=== PATIENT | male | born 1960 | race Hispanic/Latino ===

== ENCOUNTER 2019-04-25 14:02 | Emergency (ER) | payer BC ==
[2019-04-25] MEDS ORDERED: LIDOCAINE 1% 20 ML MDV ONE (14:50)
--- NOTE | 2019-04-25 15:18 | ER ---
Nurse's Notes [facility] Name: Cuauhtemoc Cloud Age: 59 yrs Sex: Male : 1960 Arrival Date: 04/25/2019 Time: 14:05 Bed 24 Private MD: Mike Todd B Diagnosis: Cutaneous abscess of left lower limb Presentation: 04/25 14:13 Presenting complaint: Stung by unknown insect on left calf 6 days ago, reports hb worsening pain and redness over last few days. On Doxycycline Day 2. Transition of care: patient was not received from another setting of care. Onset of symptoms was April 19, 2019. Risk Assessment: Do you want to hurt yourself or someone else? Patient reports no desire to harm self or others. Care prior to arrival: None. 14:13 Method Of Arrival: Ambulatory hb 14:13 Acuity: NILA 4 hb 14:16 Initial Sepsis Screen: Does the patient meet any 2 criteria? No. Patient's initial hb sepsis screen is negative. Does the patient have a suspected source of infection? No. Patient's initial sepsis screen is negative. Triage Assessment: 14:50 Bite description: bite sustained to left leg by an unknown animal, animal information: mg2 vaccination(s) is unknown. General: Appears in no apparent distress. comfortable, Behavior is calm, cooperative. Historical: - Allergies: 14:16 No Known Allergies; hb - PMHx: 14:16 Hypertension; hb - Immunization history:: Adult Immunizations up to date. - Social history:: Smoking status: Patient/guardian denies using tobacco. - Ebola Screening: : No symptoms or risks identified at this time. Screenin:49 Abuse screen: Denies threats or abuse. Denies injuries from another. Nutritional mg2 screening: No deficits noted. Tuberculosis screening: No symptoms or risk factors identified. Fall Risk None identified. Assessment: 14:48 General: Appears in no apparent distress. comfortable, Behavior is calm, cooperative. mg2 Pain: Complains of pain in left leg Pain does not radiate. Pain currently is 5 out of 10 on a pain scale. Quality of pain is described as aching, Pain began gradually, 2-3 days ago. Neuro: Level of Consciousness is awake, alert, obeys commands, Oriented to person, place, time, situation. Cardiovascular: Capillary refill < 3 seconds Patient's skin is warm and dry. Respiratory: Airway is patent Respiratory effort is even, unlabored, Respiratory pattern is regular, symmetrical. GI: No signs and/or symptoms were reported involving the gastrointestinal system. : No signs and/or symptoms were reported regarding the genitourinary system. EENT: No signs and/or symptoms were reported regarding the EENT system. Derm: Skin abscess in the left leg Skin is pink, warm \T\ dry. normal, Abscess located on left leg. Musculoskeletal: Circulation, motion, and sensation intact. Capillary refill < 3 seconds. Vital Signs: 14:14 BP 155 / 85; Pulse 90; Resp 16; Temp 97.8; Pulse Ox 96% ; Weight 88 kg; Height 5 ft. 6 hb in. (167.64 cm); Pain 8/10; 15:26 BP 145 / 78; Pulse 88; Resp 18; Temp 98; Pulse Ox 100% on R/A; mg2 14:14 Body Mass Index 31.31 (88.00 kg, 167.64 cm) hb ED Course: 14:05 Patient arrived in ED. cl3 14:06 Mike Todd MD is Private Physician. cl3 14:14 Triage completed. hb 14:16 Arm band placed on. hb 14:21 Chandler Andrew PA is PHCP. jr8 14:21 Eyad Jimenez MD is Attending Physician. jr8 14:30 David Knapp, SANCHO is Primary Nurse. mg2 14:50 Patient did not have IV access during this emergency room visit. mg2 14:51 Patient has correct armband on for positive identification. mg2 15:18 Mike Todd MD is Referral Physician. jr8 15:25 Assist provider with I \T\ D: of an abscess on left leg Set up I\T\D tray. Performed by mg 2 Chandler HYDE Wound packed. iodoform gauze, Dressing with 4X4s, Patient tolerated well. Administered Medications: 15:07 Drug: Lidocaine (1 %) 1 vials {Note: applied by the provider to the wound.} Volume: 20 mg2 ml; Route: Infiltration; 15:25 Follow up: Response: No adverse reaction mg2 Outcome: 15:18 Discharge ordered by . jr8 15:26 Discharged to home ambulatory. mg2 15:26 Condition: stable 15:26 Discharge instructions given to patient, Instructed on discharge instructions, follow up and referral plans. medication usage, wound care, Demonstrated understanding of instructions, follow-up care, medications, wound care, Prescriptions given X 1. 15:26 Patient left the ED. mg2 Signatures: Chandler Andrew PA PA jr8 Dania Weiner RN RN hb David Knapp RN RN mg2 [place] cl3 Corrections: (The following items were deleted from the chart) 14:16 14:13 Presenting complaint: Stung by unknown insect on left calf 6 days ago, reports hb worsening pain and redness over last few days hb
--- NOTE | 2019-04-25 15:19 | EDPHYS ---
Physician Documentation [facility] Name: Cuauhtemoc Cloud Age: 59 yrs Sex: Male : 1960 Arrival Date: 04/25/2019 Time: 14:05 Bed 24 Private MD: Mike Todd B ED Physician Eyad Jimenez HPI: 04/25 14:43 This 59 yrs old Male presents to ER via Ambulatory with complaints of Insect jr8 Bite. 14:43 the patient presents with a swollen area of the left leg. Description: The affected jr8 area is moderate sized, draining, erythematous, swollen, warm. Onset: The symptoms/episode began/occurred gradually, 3 day(s) ago. Possible cause(s): unknown. Associated signs and symptoms: The patient has no apparent associated signs or symptoms. Modifying factors: the symptoms are alleviated by nothing, the symptoms are aggravated by walking, pressure, squeezing the lesion and expressing the contents, touching. Severity of symptoms: At their worst the symptoms were moderate, in the emergency department the symptoms are unchanged. The patient has not experienced similar symptoms in the past. The patient has not recently seen a physician. Historical: - Allergies: 14:16 No Known Allergies; hb - PMHx: 14:16 Hypertension; hb - Immunization history:: Adult Immunizations up to date. - Social history:: Smoking status: Patient/guardian denies using tobacco. - Ebola Screening: : No symptoms or risks identified at this time. ROS: 14:43 Eyes: Negative for injury, pain, redness, and discharge, ENT: Negative for injury, jr8 pain, and discharge, Neck: Negative for injury, pain, and swelling, Cardiovascular: Negative for chest pain, palpitations, and edema, Respiratory: Negative for shortness of breath, cough, wheezing, and pleuritic chest pain, Abdomen/GI: Negative for abdominal pain, nausea, vomiting, diarrhea, and constipation, Back: Negative for injury and pain, MS/Extremity: Negative for injury and deformity, Neuro: Negative for headache, weakness, numbness, tingling, and seizure. 14:43 Skin: Positive for abscess, cellulitis, of the left leg. Exam: 14:43 Eyes: Pupils equal round and reactive to light, extra-ocular motions intact. Lids and jr8 lashes normal. Conjunctiva and sclera are non-icteric and not injected. Cornea within normal limits. Periorbital areas with no swelling, redness, or edema. ENT: Nares patent. No nasal discharge, no septal abnormalities noted. Tympanic membranes are normal and external auditory canals are clear. Oropharynx with no redness, swelling, or masses, exudates, or evidence of obstruction, uvula midline. Mucous membranes moist. Neck: Trachea midline, no thyromegaly or masses palpated, and no cervical lymphadenopathy. Supple, full range of motion without nuchal rigidity, or vertebral point tenderness. No Meningismus. Cardiovascular: Regular rate and rhythm with a normal S1 and S2. No gallops, murmurs, or rubs. Normal PMI, no JVD. No pulse deficits. Respiratory: Lungs have equal breath sounds bilaterally, clear to auscultation and percussion. No rales, rhonchi or wheezes noted. No increased work of breathing, no retractions or nasal flaring. Abdomen/GI: Soft, non-tender, with normal bowel sounds. No distension or tympany. No guarding or rebound. No evidence of tenderness throughout. Back: No spinal tenderness. No costovertebral tenderness. Full range of motion. MS/ Extremity: Pulses equal, no cyanosis. Neurovascular intact. Full, normal range of motion. Neuro: Awake and alert, GCS 15, oriented to person, place, time, and situation. Cranial nerves II-XII grossly intact. Motor strength 5/5 in all extremities. Sensory grossly intact. Cerebellar exam normal. Normal gait. 14:43 Skin: Patient has 2.5 cm area of fluctuance with active draining of purulent material. Patient has surrounding cellulitis present covering large portion of lateral and posterior calf. Vital Signs: 14:14 BP 155 / 85; Pulse 90; Resp 16; Temp 97.8; Pulse Ox 96% ; Weight 88 kg; Height 5 ft. 6 hb in. (167.64 cm); Pain 8/10; 15:26 BP 145 / 78; Pulse 88; Resp 18; Temp 98; Pulse Ox 100% on R/A; mg2 14:14 Body Mass Index 31.31 (88.00 kg, 167.64 cm) hb Procedures: 15:16 I \T\ D: Incision and drainage was performed for an abscess of the left lateral lower jr8 calf Prepped with Betadine, Anesthetized with 10 ml's 1% Lidocaine. Incised with #11 blade. Drained small amount purulent fluid. serosanguinous fluid. bloody fluid. Loculations removed. Abscess cavity explored. Packed with iodoform gauze, Dressing: sterile 4x4 gauze, the patient tolerated the procedure well. MDM: 14:24 Patient medically screened. jr8 15:16 Data reviewed: vital signs, nurses notes, and as a result, I will discharge patient. jr8 Data interpreted: Pulse oximetry: on room air is 96 %. Interpretation: normal. Counseling: I had a detailed discussion with the patient and/or guardian regarding: the historical points, exam findings, and any diagnostic results supporting the discharge/admit diagnosis, lab results, the need for outpatient follow up, a family practitioner, to return to the emergency department if symptoms worsen or persist or if there are any questions or concerns that arise at home. 04/25 14:28 Order name: I\T\D Setup; Complete Time: 14:40 jr8 Administered Medications: 15:07 Drug: Lidocaine (1 %) 1 vials {Note: applied by the provider to the wound.} Volume: 20 mg2 ml; Route: Infiltration; 15:25 Follow up: Response: No adverse reaction mg2 Disposition: 16:20 Co-signature as Attending Physician, Eyad Jimenez MD. rn Disposition: 04/25/19 15:18 Discharged to Home. Impression: Cutaneous abscess of left lower limb. - Condition is Stable. - Discharge Instructions: Skin Abscess, Incision and Drainage. - Prescriptions for Bactrim DS 800- 160 mg Oral Tablet - take 1 tablet by ORAL route every 12 hours for 10 days; 20 tablet. - Medication Reconciliation Form, Thank You Letter, Antibiotic Education, Prescription Opioid Use, Work release form form. - Follow up: Mike Todd MD; When: 48 Hours; Reason: Wound Recheck, Recheck today's complaints, Continuance of care, Re-evaluation by your physician. - Problem is new. - Symptoms have improved. Signatures: Eyad Jimenez MD MD rn Roszak, Josh, PA PA jr8 Dania Weiner RN RN David Knapp RN RN mg2 Corrections: (The following items were deleted from the chart) 15:26 15:18 04/25/2019 15:18 Discharged to Home. Impression: Cutaneous abscess of left lower mg2 limb. Condition is Stable. Forms are Medication Reconciliation Form, Thank You Letter, Antibiotic Education, Prescription Opioid Use. Follow up: Mike Todd; When: 48 Hours; Reason: Wound Recheck, Recheck today's complaints, Continuance of care, Re-evaluation by your physician. Problem is new. Symptoms have improved. jr8
== END 2019-04-25 15:26 | disposition home or self-care (01) ==
LOC: ER 14:02
PROC: 0J9P0ZZ Drainage of Left Lower Leg Subcutaneous Tissue and Fascia, Open Approach (ICD-10-PCS; principal; 2019-04-25)
DX: L02.416 Cutaneous abscess of left lower limb (principal)

== ENCOUNTER 2020-12-17 05:28 | Inpatient (IN) | payer BC ==
--- OUTSIDE RECORDS SUMMARY | 2020-12-17 05:32 | XMS REPORT | Continuity of Care Document ---
:1960 Author Organization [facility] t Address [address] [place] [address] Care Team Providers Name Role Phone Therapy, Joe Infusion Attending Clinician Unavailable Lab, Fam Pob I Attending Clinician Unavailable Problems This patient has no known problems. Allergies, Adverse Reactions, Alerts This patient has no known allergies or adverse reactions. Medications This patient has no known medications. Procedures This patient has no known procedures. Encounters Start End Encounter Admission Attending Care Care Encounter Source Date/Time Date/Time Type Type Clinicians Facility Department ID 2020-12-16 2020-12-16 Nurse Therapy, [facility] [id number] 16:02:44 16:32:[address] [facility] Joe Marrufo [id number] Infusion [place] [id number] Surgical [id number] [place] 053 2020-12-13 2020-12-13 Laboratory Lab, [facility] [id number] 11:44:00 12:04:00 Only Fam Pob I Health [id number] [place] [id number] Professio [phone] nal 044 [address] One Results This patient has no known results.
[2020-12-17 06:25] LABS: Absolute Lymphocytes (CBC) 0.9 K/uL (0.7-4.9); Basophils % 0.1 % (0-1.3); Hematocrit 43.1 % (39.6-49.0); Lymphocytes % 4.7 % (15.3-44.8); RBC Red Blood Cell Count 4.77 M/uL (4.33-5.43)
[2020-12-17] MEDS ORDERED: NA CHLORIDE 0.9% 250 ML ONE (06:33)
[2020-12-17] MEDS ORDERED: dexAMETHasone 10 MG/ML VIAL ONE (06:33)
[2020-12-17] MEDS ORDERED: CEFTRIAXONE/SWI 1gm 1 GM/10 ML SYR ONE (06:33)
[2020-12-17] MEDS ORDERED: FAMOTIDINE 20 MG/2 ML VIAL IV ONE (06:33)
[2020-12-17] MEDS ORDERED: AZITHROMYCIN 500 MG INJ IVPB ONE (06:33)
[2020-12-17] MEDS ORDERED: ALBUTEROL INHALER 60 PUFF/8 GM IH ONE (06:34)
--- NOTE | 2020-12-17 06:42 | ER ---
Nurse's Notes [facility] Name: Cuauhtemoc Cloud Age: 60 yrs Sex: Male : 1960 Arrival Date: 12/17/2020 Time: 05:32 Bed 2 Private MD: Diagnosis: Fever, unspecified;Other viral pneumonia-covid 19;Hypoxemia Presentation: 12/17 05:51 Chief complaint: Patient states: i have covid symptoms for the last 9 days like fever mg2 and shortness of breath, i tested covid positive last 12/13/20 \T\ [facility] and I received Antibody infusion yesterday \T\ [place]. 3 hours ago, radha been having fever 101 F and difficulty breathing. I took tylenol 3 hours [employer]ACHINE [employer]. Coronavirus screen: Client denies travel out of the [place] in the last 14 days. Client presents with at least one sign or symptom that may indicate coronavirus-19. Standard/surgical mask placed on the client. Provider contacted for isolation considerations. Client reports previous positive COVID test result. Date of collection: December 13, 2020 results are being brought by a family member or friend. [facility]. Ebola Screen: No symptoms or risks identified at this time. Initial Sepsis Screen: Does the patient meet any 2 criteria? No. Patient's initial sepsis screen is negative. Does the patient have a suspected source of infection? No. Patient's initial sepsis screen is negative. Risk Assessment: Do you want to hurt yourself or someone else? Patient reports no desire to harm self or others. Onset of symptoms was November 2020. 05:51 Method Of Arrival: Ambulatory mg2 05:51 Acuity: NILA 3 mg2 Triage Assessment: 05:59 General: Appears in no apparent distress. comfortable, Behavior is calm, cooperative. mg2 Pain: Denies pain. EENT: No signs and/or symptoms were reported regarding the EENT system. Neuro: Level of Consciousness is awake, alert, obeys commands, Oriented to person, place, time, situation. Cardiovascular: Capillary refill < 3 seconds Patient's skin is warm and dry. Respiratory: Reports shortness of breath at rest Onset: The symptoms/episode began/occurred gradually, the patient has mild shortness of breath. GI: No signs and/or symptoms were reported involving the gastrointestinal system. : No signs and/or symptoms were reported regarding the genitourinary system. Derm: Skin is intact, is healthy with good turgor, Skin is pink, warm \T\ dry. normal. Musculoskeletal: Circulation, motion, and sensation intact. Capillary refill < 3 seconds. Historical: - Allergies: 05:59 No Known Allergies; mg2 - Home Meds: 05:59 cholesterol and bp pills [Active]; mg2 - PMHx: 05:59 Hypertension; Hyperlipidemia; mg2 - Immunization history:: Flu vaccine status is unknown. - Social history:: Smoking status: Patient denies any tobacco usage or history of. Patient/guardian denies using alcohol, street drugs, IV drugs. - Family history:: not pertinent. Screenin:00 Abuse screen: Denies threats or abuse. Denies injuries from another. Nutritional mg2 screening: No deficits noted. Tuberculosis screening: No symptoms or risk factors identified. Fall Risk None identified. Assessment: 06:00 General: see triage note. mg2 06:21 Cardiovascular: Rhythm is regular. Respiratory: Airway is patent Respiratory effort is mg2 even, unlabored, 07:00 Reassessment: Patient appears in no apparent distress at this time. Patient and/or tw2 family updated on plan of care and expected duration. Pain level reassessed. Patient is alert, oriented x 3, equal unlabored respirations, skin warm/dry/pink. Patient states feeling better. Patient states symptoms have improved. Vital Signs: 05:51 BP 140 / 78; Pulse 88; Resp 20; Temp 99.2; Pulse Ox 92% on R/A; mg2 07:41 BP 147 / 67; Pulse 84; Resp 17; Pulse Ox 95% on R/A; tw2 09:00 BP 112 / 73; Pulse 75; Resp 15; Pulse Ox 94% ; jl7 ED Course: 05:32 Patient arrived in ED. am4 05:51 David Knapp, SANCHO is Primary Nurse. mg2 05:57 Triage completed. mg2 05:58 Zack Clay MD is Attending Physician. [place] 05:59 Arm band placed on. mg2 06:00 Patient has correct armband on for positive identification. mg2 06:00 No provider procedures requiring assistance completed. mg2 06:00 Inserted saline lock: 20 gauge in left antecubital area, using aseptic technique. Blood mg2 collected. 06:07 EKG done, by ED staff, reviewed by Zack Clay MD. em 06:26 XRAY Chest (1 view) In Process Unspecified. EDMS 06:38 Farheen Lara MD is Hospitalizing Provider. [place] 07:00 Pulse ox on. NIBP on. jl7 07:02 CT Chest For PE Angio In Process Unspecified. EDMS 07:08 Primary Nurse role handed off by David Knapp, SANCHO bd 07:14 Lala Dubose, SANCHO is Primary Nurse. tw2 07:40 Awaiting: hospital orders, hospitalist consult, and update as to POC. tw2 10:37 Patient admitted, IV remains in place. intact, No redness/swelling at site. jl7 Administered Medications: 06:20 Drug: Rocephin - (cefTRIAXone) 1 grams Route: IVPB; Infused Over: 30 mins; Site: left mg2 antecubital; 07:00 Follow up: Response: No adverse reaction; IV Status: Completed infusion jl7 06:20 Drug: Zithromax (azithromycin) 500 mg Route: IVPB; Infused Over: 1 hrs; Site: left mg2 antecubital; 07:20 Follow up: Response: No adverse reaction; IV Status: Completed infusion jl7 06:20 Drug: Pepcid 20 mg Route: IVP; Site: left antecubital; mg2 07:00 Follow up: Response: No adverse reaction jl7 06:20 Drug: Decadron - Dexamethasone 10 mg Route: IVP; Site: left antecubital; mg2 07:00 Follow up: Response: No adverse reaction jl7 06:20 Drug: Albuterol HFA Inhaler 4 puffs Route: Inhalation; mg2 07:00 Follow up: Response: No adverse reaction jl7 06:24 Not Given (patient took tylenol 3 hours ago): Tylenol 1000 mg PO once mg2 06:31 Drug: Zofran (Ondansetron) 4 mg Route: IVP; Site: left antecubital; mg2 07:41 Follow up: Response: No adverse reaction; Nausea is decreased tw2 08:00 Drug: Lovenox 40 mg Route: Sub-Q; Site: right lower abdomen; tw2 10:38 Follow up: Response: No adverse reaction jl7 Outcome: 06:41 Decision to Hospitalize by Provider. [place] 10:36 Admitted to ER Hold. Please see [facility] for further documentation. jl7 10:36 Condition: stable 10:36 Discharge instructions given to patient, Instructed on the need for admit, Demonstrated understanding of instructions. 15:45 Patient left the ED. aa5 Signatures: Dispatcher [employer] Miesha Sesay Corey, MD MD cha Munoz, Edgar, RN RN Josee Gonzalez, RN RN aa5 Lala Dubose RN RN tw2 Rom King RN RN jl7 David Knapp RN SANCHO [facility] Bhavya Gurrola am
--- NOTE | 2020-12-17 06:42 | EDPHYS ---
Physician Documentation [facility] Name: Cuauhtemoc Cloud Age: 60 yrs Sex: Male : 1960 Arrival Date: 12/17/2020 Time: 05:32 Bed 2 Private MD: ED Physician Zack Clay HPI: 12/17 06:08 This 60 yrs old Male presents to ER via Ambulatory with complaints of delano Shortness Of Breath, COVID +. 06:08 The patient has shortness of breath at rest, with light activity. Onset: The delano symptoms/episode began/occurred just prior to arrival, this morning. Duration: The symptoms are continuous, and are steadily getting worse. The patient's shortness of breath is aggravated by coughing, light activity, supine position. Associated signs and symptoms: Pertinent positives: non-productive cough, fever. Severity of symptoms: At their worst the symptoms were mild moderate in the emergency department the symptoms have improved mildly. The patient has experienced similar episodes in the past, a few times. Historical: - Allergies: 05:59 No Known Allergies; mg2 - Home Meds: 05:59 cholesterol and bp pills [Active]; mg2 - PMHx: 05:59 Hypertension; Hyperlipidemia; mg2 - Immunization history:: Flu vaccine status is unknown. - Social history:: Smoking status: Patient denies any tobacco usage or history of. Patient/guardian denies using alcohol, street drugs, IV drugs. - Family history:: not pertinent. ROS: 06:08 Constitutional: Negative for fever, chills, and weight loss, Eyes: Negative for injury, delano pain, redness, and discharge, ENT: Negative for injury, pain, and discharge, Neck: Negative for injury, pain, and swelling, Cardiovascular: Negative for chest pain, palpitations, and edema, Abdomen/GI: Negative for abdominal pain, nausea, vomiting, diarrhea, and constipation, Back: Negative for injury and pain, : Negative for injury, bleeding, discharge, and swelling, MS/Extremity: Negative for injury and deformity, Skin: Negative for injury, rash, and discoloration, Neuro: Negative for headache, weakness, numbness, tingling, and seizure, Psych: Negative for depression, anxiety, suicide ideation, homicidal ideation, and hallucinations, Allergy/Immunology: Negative for hives, rash, and allergies, Endocrine: Negative for neck swelling, polydipsia, polyuria, polyphagia, and marked weight changes, Hematologic/Lymphatic: Negative for swollen nodes, abnormal bleeding, and unusual bruising. 06:08 Respiratory: Positive for cough, shortness of breath, at rest. Exam: 06:08 Constitutional: This is a well developed, well nourished patient who is awake, alert, delano and in no acute distress. Head/Face: Normocephalic, atraumatic. Eyes: Pupils equal round and reactive to light, extra-ocular motions intact. Lids and lashes normal. Conjunctiva and sclera are non-icteric and not injected. Cornea within normal limits. Periorbital areas with no swelling, redness, or edema. ENT: Nares patent. No nasal discharge, no septal abnormalities noted. Tympanic membranes are normal and external auditory canals are clear. Oropharynx with no redness, swelling, or masses, exudates, or evidence of obstruction, uvula midline. Mucous membranes moist. Neck: Trachea midline, no thyromegaly or masses palpated, and no cervical lymphadenopathy. Supple, full range of motion without nuchal rigidity, or vertebral point tenderness. No Meningismus. Chest/axilla: Normal chest wall appearance and motion. Nontender with no deformity. No lesions are appreciated. Cardiovascular: Regular rate and rhythm with a normal S1 and S2. No gallops, murmurs, or rubs. Normal PMI, no JVD. No pulse deficits. Abdomen/GI: Soft, non-tender, with normal bowel sounds. No distension or tympany. No guarding or rebound. No evidence of tenderness throughout. Back: No spinal tenderness. No costovertebral tenderness. Full range of motion. Male : Normal genitalia with no discharge or lesions. Skin: Warm, dry with normal turgor. Normal color with no rashes, no lesions, and no evidence of cellulitis. MS/ Extremity: Pulses equal, no cyanosis. Neurovascular intact. Full, normal range of motion. Neuro: Awake and alert, GCS 15, oriented to person, place, time, and situation. Cranial nerves II-XII grossly intact. Motor strength 5/5 in all extremities. Sensory grossly intact. Cerebellar exam normal. Normal gait. Psych: Awake, alert, with orientation to person, place and time. Behavior, mood, and affect are within normal limits. 06:08 Respiratory: the patient does not display signs of respiratory distress, Respirations: labored breathing, that is mild, Breath sounds: decreased breath sounds, rhonchi, that are mild, Respiratory rate: 20 06:14 ECG was reviewed by the Attending Physician. [facility] Vital Signs: 05:51 BP 140 / 78; Pulse 88; Resp 20; Temp 99.2; Pulse Ox 92% on R/A; mg2 07:41 BP 147 / 67; Pulse 84; Resp 17; Pulse Ox 95% on R/A; tw2 09:00 BP 112 / 73; Pulse 75; Resp 15; Pulse Ox 94% ; jl7 MDM: 05:58 Patient medically screened. [facility] 06:11 Differential diagnosis: asthma, Bronchitis CHF exacerbation, Chronic Obstructive delano Pulmonary Disease pneumonia, pulmonary edema, Pulmonary Embolism reactive airway disease, Sepsis. Antibiotic administration: Rocephin and Zithromax given. The patient's Wells Deep Vein Thrombosis Score was calculated as follows: Total Score: 0-2 Pts- Low Risk. The patient's pulmonary embolism risk score was calculated as follows: Total Score: 3-6 points. This patient was found to be at moderate risk for a pulmonary embolism by using the Well's assessment criteria. Immunization status: Influenza vaccine: Data reviewed: vital signs, nurses notes, lab test result(s), EKG, radiologic studies, plain films. Data interpreted: monitoring and evaluation advisor: rate is 88 beats/min, rhythm is regular. Test interpretation: by ED physician or midlevel provider: ECG, plain radiologic studies. Counseling: I had a detailed discussion with the patient and/or guardian regarding: the historical points, exam findings, and any diagnostic results supporting the discharge/admit diagnosis, lab results, radiology results. 12/17 05:58 Order name: Basic Metabolic Panel; Complete Time: 07:23 em 12/17 05:58 Order name: CBC with Diff em 12/17 05:58 Order name: LFT's; Complete Time: 07:23 em 12/17 05:58 Order name: Magnesium; Complete Time: 07:23 em 12/17 05:58 Order name: NT PRO-BNP; Complete Time: 07:23 em 12/17 05:58 Order name: PT-INR; Complete Time: 07:23 em 12/17 05:58 Order name: Troponin (emerg Dept Use Only); Complete Time: 07:23 em 12/17 05:59 Order name: Lactate; Complete Time: 07:23 em 12/17 05:59 Order name: Blood Culture Adult (2) em 12/17 05:59 Order name: Urine Culture em 12/17 06:42 Order name: CREATININE WHOLE BLOOD; Complete Time: 07:23 EDMS 12/17 08:16 Order name: Urine Dipstick--Ancillary (enter results) bd 12/17 08:37 Order name: Manual Differential EDMS 12/17 08:50 Order name: C-Reactive Protein EDMS 12/17 05:58 Order name: XRAY Chest (1 view) em 12/17 06:13 Order name: CT Chest For PE Angio delano 12/17 08:50 Order name: C-Reactive Protein EDMS 12/17 08:50 Order name: Comprehensive Metabolic Panel EDMS 12/17 08:50 Order name: Comprehensive Metabolic Panel EDMS 12/17 08:50 Order name: Ferritin EDMS 12/17 08:51 Order name: Ferritin EDMS 12/17 08:51 Order name: CBC with Automated Diff EDMS 12/17 08:51 Order name: CBC with Automated Diff EDMS 12/17 08:51 Order name: Lipid Profile EDMS 12/17 08:51 Order name: Lipid Profile EDMS 12/17 08:51 Order name: Magnesium EDMS 12/17 08:51 Order name: Magnesium EDMS 12/17 08:51 Order name: Phosphorus EDMS 12/17 08:51 Order name: Phosphorus EDMS 12/17 05:58 Order name: EKG; Complete Time: 05:59 em 12/17 05:58 Order name: Cardiac monitoring; Complete Time: 06:00 em 12/17 05:58 Order name: EKG - Nurse/Tech; Complete Time: 06:12 em 12/17 05:58 Order name: IV Saline Lock; Complete Time: 06:21 em 12/17 05:58 Order name: Labs collected and sent; Complete Time: 06:21 em 12/17 05:58 Order name: O2 Per Protocol; Complete Time: 06:21 em 12/17 05:58 Order name: O2 Sat Monitoring; Complete Time: 06:21 em 12/17 08:50 Order name: Regular EDMS EC:14 Rate is 94 beats/min. Rhythm is regular. QRS [place] is Normal. MD interval is normal. QRS delano interval is normal. QT interval is normal. No Q waves. T waves are Normal. No ST changes noted. Clinical impression: NSR w/ Non-specific ST/T Changes and No evidence of ischemia. Interpreted by me. Reviewed by me. Administered Medications: 06:20 Drug: Rocephin - (cefTRIAXone) 1 grams Route: IVPB; Infused Over: 30 mins; Site: left mg2 antecubital; 07:00 Follow up: Response: No adverse reaction; IV Status: Completed infusion jl7 06:20 Drug: Zithromax (azithromycin) 500 mg Route: IVPB; Infused Over: 1 hrs; Site: left mg2 antecubital; 07:20 Follow up: Response: No adverse reaction; IV Status: Completed infusion jl7 06:20 Drug: Pepcid 20 mg Route: IVP; Site: left antecubital; mg2 07:00 Follow up: Response: No adverse reaction jl7 06:20 Drug: Decadron - Dexamethasone 10 mg Route: IVP; Site: left antecubital; mg2 07:00 Follow up: Response: No adverse reaction jl7 06:20 Drug: Albuterol HFA Inhaler 4 puffs Route: Inhalation; mg2 07:00 Follow up: Response: No adverse reaction jl7 06:24 Not Given (patient took tylenol 3 hours ago): Tylenol 1000 mg PO once mg2 06:31 Drug: Zofran (Ondansetron) 4 mg Route: IVP; Site: left antecubital; mg2 07:41 Follow up: Response: No adverse reaction; Nausea is decreased tw2 08:00 Drug: Lovenox 40 mg Route: Sub-Q; Site: right lower abdomen; tw2 10:38 Follow up: Response: No adverse reaction jl7 Disposition: 12/17/20 06:41 Hospitalization ordered by Farheen Lara for Inpatient Admission. Preliminary diagnosis are Fever, unspecified, Other viral pneumonia - covid 19, Hypoxemia. - Bed requested for Telemetry/MedSurg (Inpatient). - Status is Inpatient Admission. aa5 - Condition is Fair. - Problem is new. - Symptoms have improved. Signatures: Dispatcher [employer] EDMiesha Aranda Corey, MD MD cha Munoz, Edgar RN RN Josee Gonzalez RN RN aa5 Cristin Rojas RN RN ss Lala Dubose RN RN tw2 David Knapp, RN RN [facility] Rom King RN jl7 Corrections: (The following items were deleted from the chart) 08:20 06:41 Hospitalization Ordered by Farheen Lara MD for Inpatient Admission. Preliminary ss diagnosis is Fever, unspecified; Other viral pneumonia - covid 19; Hypoxemia. Bed requested for Telemetry/MedSurg (Inpatient). Status is Inpatient Admission. Condition is Fair. Problem is new. Symptoms have improved. delano 15:23 08:20 12/17/2020 06:41 Hospitalization Ordered by Farheen Lara MD for Inpatient bd Admission. Preliminary diagnosis is Fever, unspecified; Other viral pneumonia - covid 19; Hypoxemia. Bed requested for [facility] ER HOLD. Status is Inpatient Admission. Condition is Fair. Problem is new. Symptoms have improved. ss 15:45 15:23 12/17/2020 06:41 Hospitalization Ordered by Farheen Lara MD for Inpatient aa5 Admission. Preliminary diagnosis is Fever, unspecified; Other viral pneumonia - covid 19; Hypoxemia. Bed requested for Telemetry/MedSurg (Inpatient). Status is Inpatient Admission. Condition is Fair. Problem is new. Symptoms have improved. bd
[2020-12-17 06:44] LABS: Protime INR 1.26
[2020-12-17 06:47] LABS: ALT/SGPT 201 U/L (12-78); AST/SGOT 251 U/L (15-37); Albumin 2.8 g/dL (3.4-5.0); Alkaline Phosphatase 110 U/L (45-117); BUN Blood Urea Nitrogen 21 mg/dL (7-18); Bicarbonate 22 mmol/L (21-32); Bilirubin Direct 0.4 mg/dL (0-0.2); Bilirubin Total 0.9 mg/dL (0.2-1.0); Glucose Level 116 mg/dL (74-106); Magnesium 1.9 mg/dL (1.8-2.4); NT PRO-BNP 197 pg/mL (<125); Potassium 3.6 mmol/L (3.5-5.1); Protein, Total 6.9 g/dL (6.4-8.2); Sodium Level 139 mmol/L (136-145); Troponin (Emerg Dept Use Only) < 0.02 ng/mL (0.0-0.045)
[2020-12-17] MEDS ORDERED: ONDANSETRON 4 MG/2 ML VIAL ONE (06:47)
--- NOTE | 2020-12-17 07:42 | RAD REPORT ---
EXAM DESCRIPTION: Penny Single View12/17/2020 6:25 am CLINICAL HISTORY: Shortness of breath COMPARISON: none FINDINGS: Mild to moderate bilateral patchy lung opacities. The heart is normal size IMPRESSION: Mild to moderate bilateral patchy lung opacities may indicate pneumonia
--- NOTE | 2020-12-17 07:43 | RAD REPORT ---
EXAM DESCRIPTION: CT - Chest For Pe Angio - 12/17/2020 7:02 am CLINICAL HISTORY: Shortness of breath COMPARISON: None. TECHNIQUE: Dynamically enhanced axial 3 mm thick images of the chest were obtained during administra tion of <100> mL Isovue 370 IV contrast. Coronal and oblique reconstruction images were generated and reviewed. Exam utilizes a protocol for optimal evaluation of pulmonary arterial tree. Maximum intensity projections 3D imaging was utilized All CT scans are performed using dose optimization technique as appropriate and may include automated exposure control or mA/KV adjustment according to patient size. FINDINGS: A pulmonary embolus is not seen. A thoracic aortic aneurysm is not noted. A pleural effusion is not seen. A pericardial effusion is not seen. Mild to moderate bilateral ground-glass opacities IMPRESSION: Negative for a pulmonary embolism. Mild to moderate bilateral ground-glass opacities may indicate covid pneumonia
[2020-12-17] MEDS ORDERED: ENOXAPARIN 40 MG/0.4 ML SQ ONE (07:53)
[2020-12-17 08:37] LABS: Blood Morphology Comment NOT SEEN (NOT SEEN); Platelet Estimate ADEQ
[2020-12-17 08:40] LABS: Urine Blood NEGATIVE (NEG); Urine Glucose NEGATIVE (NEG); Urine Protein 2+ (NEG); Urine Specific Gravity 1.015 (1.005-1.030)
[2020-12-17] MEDS ORDERED: ALBUTEROL 2.5 MG/3 ML NEB SOL NEB PRN ×2 (08:48→14:00)
[2020-12-17] MEDS ORDERED: ACETAMINOPHEN 500 MG TAB PO PRN (08:48)
[2020-12-17] MEDS ORDERED: IPRATROPIUM BROM 0.5MG/2.5ML NEB PRN (08:48)
[2020-12-17] MEDS ORDERED: ONDANSETRON 4 MG/2 ML VIAL IV PRN (08:48)
[2020-12-17] MEDS ORDERED: CEFTRIAXONE 1 GM/NS 50 ML 1 GM/50 ML BAG IV SCH (09:00)
[2020-12-17] MEDS ORDERED: APIXABAN 2.5 MG TABLET PO SCH (09:00)
[2020-12-17] MEDS ORDERED: METHYLPREDNISOLONE 40 MG INJ ONE (10:27)
[2020-12-17] MEDS ORDERED: APIXABAN 5 MG TABLET ONE (10:27)
[2020-12-17] MEDS: APIXABAN 5 MG TABLET PO SCH ×2 (10:30→20:31)
[2020-12-17] MEDS: METHYLPREDNISOLONE 125 MG INJ IV SCH ×2 (10:30→20:31)
[2020-12-17 13:17] VITALS: BMI 31.9
[2020-12-17] MEDS ORDERED: INFLUENZA VACCINE (for 3y+) 0.5 ML DOSE IMVAC ONE (14:00)
[2020-12-17] MEDS: CEFTRIAXONE/SWI 1gm 1 GM/10 ML SYR IV SCH (20:31)
[2020-12-18 04:19] LABS: Absolute Lymphocytes (CBC) 0.9 K/uL (0.7-4.9); Basophils % 0.1 % (0-1.3); Lymphocytes % 6.9 % (15.3-44.8); MPV 9.4 fL (7.6-11.3); RBC Red Blood Cell Count 4.23 M/uL (4.33-5.43)
[2020-12-18 05:43] LABS: ALT/SGPT 178 U/L (12-78); AST/SGOT 104 U/L (15-37); Albumin 2.6 g/dL (3.4-5.0); Alkaline Phosphatase 101 U/L (45-117); BUN Blood Urea Nitrogen 23 mg/dL (7-18); Bicarbonate 25 mmol/L (21-32); Bilirubin Total 0.6 mg/dL (0.2-1.0); Glucose Level 139 mg/dL (74-106); HDL Cholesterol 35 mg/dL (40-60); LDL Cholesterol, Calculated 80 (<130); Magnesium 2.4 mg/dL (1.8-2.4); Phosphorus 3.5 mg/dL (2.5-4.9); Potassium 4.3 mmol/L (3.5-5.1); Protein, Total 6.7 g/dL (6.4-8.2); Sodium Level 141 mmol/L (136-145)
--- NOTE | 2020-12-18 07:21 | EKG ---
Test Date: 2020-12-17 Test Time: 06:07:22 Supervisor [employer]penters: LOUIE MEASUREMENT RESULTS: Intervals: Rate: 94 NJ: 126 QRSD: 102 QT: 380 QTc: 475 [place]: P: 38 NJ: 126 QRS: -39 T: 24 INTERPRETIVE STATEMENTS: Normal sinus rhythm Left axis deviation Abnormal ECG Compared to ECG 11/10/2006 10:30:44 Left ventricular hypertrophy no longer present Electronically Signed On 12-18-20 07:18:25 CDT by Chay Durbin
[2020-12-18] MEDS: CEFTRIAXONE/SWI 1gm 1 GM/10 ML SYR IV SCH (07:53)
[2020-12-18] MEDS: METHYLPREDNISOLONE 125 MG INJ IV SCH (07:54)
[2020-12-18] MEDS: APIXABAN 5 MG TABLET PO SCH (07:54)
[2020-12-18] MEDS ORDERED: AZITHROMYCIN IV 500 MG in NA CHLORIDE 0.9% 250 ML IVPB SCH (09:00)
[2020-12-18 16:31] VITALS: O2SAT 92
[2020-12-18 16:46] VITALS: BP 113/59; TEMP 97.9
--- NOTE | 2020-12-18 18:13 | P.HP ---
Certification for Inpatient Patient admitted to: Inpatient With expected LOS: >2 Midnights Patient will require the following post-hospital care: None Practitioner: I am a practitioner with admitting privileges, knowledge of patient current condition, hospital course, and medical plan of care. Services: Services provided to patient in accordance with Admission requirements found in Title 42 Section 412.3 of the Code of Federal Regulations Patient History Date of Service: 12/17/20 Reason for admission: COVID-19 pneumonia History of Present Illness: Patient is a 60-year-old gentleman who came to the hospital with difficulty breathing, coughing congestion. Patient was found to have COVID-19 pneumonia. Patient be admitted to the hospital for further evaluation. Monitor patient's clinical status. Patient has been given monoclonal antibodies at [facility]. Anticipate his recovery will be gomez. Allergies guaifenesin [From Mucinex] Adverse Reaction (Mild, Verified 12/18/20 05:37) Itching/Hives/Rash Home Medications: Candesartan/Hydrochlorothiazid [Candesartan-Hctz 16-12.5 mg Tb] 16 mg PO DAILY 12/17/20 Rosuvastatin [Crestor*] 5 mg PO DAILY 12/17/20 Albuterol Inhaler [Ventolin Inhaler*] 2 puff IH Q6H PRN #1 hfa.aer.ad 12/18/20 Apixaban [Eliquis] 5 mg PO BID #14 tablet 12/18/20 predniSONE [Prednisone*] 20 mg PO DAILY #5 tab 12/18/20 - Past Medical/Surgical History Has patient received pneumonia vaccine in the past: No Past Medical History: Patient denies medical history Past Surgical History: Patient denies surgical history - Family History Father Family History: Reviewed- Non-Contributory - Social History Smoking Status: Never smoker Alcohol use: No CD- Drugs: No Caffeine use: No Review of Systems 10-point ROS is otherwise unremarkable Physical Examination - Vital Signs Temperature: 97.9 F Blood Pressure: 113/59 Pulse: 68 Respirations: 16 Pulse Ox (%): 92 - Physical Exam General: Alert, In no apparent distress, Oriented x3 HEENT: Atraumatic, PERRLA, Mucous membr. moist/pink, EOMI, Sclerae nonicteric Neck: Supple, 2+ carotid pulse no bruit, No LAD, Without JVD or thyroid abnormality Respiratory: Clear to auscultation bilaterally, Normal air movement Cardiovascular: Regular rate/rhythm, Normal S1 S2, No murmurs Gastrointestinal: Normal bowel sounds, Soft and benign, Non-distended, No tenderness Musculoskeletal: No clubbing, No swelling, No tenderness Integumentary: No rashes Neurological: Normal gait, Normal speech, Normal strength at 5/5 x4 extr, Normal tone, Sensation intact, Cranial nerves 3-12 intact, Normal affect Lymphatics: No axilla or inguinal lymphadenopathy Assessment & Plan - Problems (Diagnosis) (1) Pneumonia due to COVID-19 virus Current Visit: Yes Status: Acute - Plan 1. Continue with IV steroids 2. Monitor inflammatory markers 3. Repeat chest x-ray is symptoms are progressively worsening 4. O2 per protocol 5. Pulmonary consultation 6. Continue with albuterol inhaler therapy; also supportive care 7. Monitor LFTs 8. GI and DVT prophylaxis Discharge Plan: Home Plan to discharge in: 24 Hours - Advance Directives Does patient have a Living Will: No Does patient have a Durable POA for Healthcare: No
--- NOTE | 2020-12-18 18:16 | P.DS ---
Discharge Date: 12/18/20 Disposition: ROUTINE DISCHARGE Discharge Condition: GOOD Reason for Admission: COVID-19 pneumonia - Problems (1) Pneumonia due to COVID-19 virus Current Visit: Yes Status: Acute Brief History of Present Illness: Patient is a 60-year-old gentleman who came to the hospital with difficulty breathing, coughing congestion. Patient was found to have COVID-19 pneumonia. Patient be admitted to the hospital for further evaluation. Monitor patient's clinical status. Patient has been given monoclonal antibodies at [facility]. Anticipate his recovery will be gomez. Hospital Course: Patient has done well during hospital stay. I believe the fact that he got a monoclonal antibodies at an outside hospital was beneficial to his recovery. Patient is doing well and is able to discharge home without supplemental oxygen. Will give much short course of steroids and anti coagulation. Vital Signs/Physical Exam: Temp Pulse Resp BP Pulse Ox 97.9 F 68 16 113/59 L 92 12/18/20 18:15 12/18/20 18:15 12/18/20 18:15 12/18/20 18:15 12/18/20 18:15 General: Alert, In no apparent distress, Oriented x3 Laboratory Data at Discharge: WBC 12.60 K/uL (4.3-10.9) H D 12/18/20 03:10 Hgb 13.9 g/dL (13.6-17.9) 12/18/20 03:10 Hct 40.0 % (39.6-49.0) 12/18/20 03:10 Plt Count 217 K/uL (152-406) 12/18/20 03:10 PT 14.5 SECONDS (9.5-12.5) H 12/17/20 06:00 INR 1.26 12/17/20 06:00 Sodium 141 mmol/L (136-145) 12/18/20 03:10 Potassium 4.3 mmol/L (3.5-5.1) 12/18/20 03:10 BUN 23 mg/dL (7-18) H 12/18/20 03:10 Creatinine 0.75 mg/dL (0.55-1.3) 12/18/20 03:10 Glucose 139 mg/dL (74-106) H 12/18/20 03:10 Phosphorus 3.5 mg/dL (2.5-4.9) 12/18/20 03:10 Magnesium 2.4 mg/dL (1.8-2.4) D 12/18/20 03:10 Total Bilirubin 0.6 mg/dL (0.2-1.0) 12/18/20 03:10 AST 104 U/L (15-37) H D 12/18/20 03:10 ALT 178 U/L (12-78) H 12/18/20 03:10 Alkaline Phosphatase 101 U/L (45-117) 12/18/20 03:10 Triglycerides 118 mg/dL (<150) 12/18/20 03:10 Cholesterol 139 mg/dL (<200) 12/18/20 03:10 HDL Cholesterol 35 mg/dL (40-60) L 12/18/20 03:10 Cholesterol/HDL Ratio 3.97 12/18/20 03:10 Home Medications: Candesartan/Hydrochlorothiazid [Candesartan-Hctz 16-12.5 mg Tb] 16 mg PO DAILY 12/17/20 Rosuvastatin [Crestor*] 5 mg PO DAILY 12/17/20 Albuterol Inhaler [Ventolin Inhaler*] 2 puff IH Q6H PRN #1 hfa.aer.ad 12/18/20 Apixaban [Eliquis] 5 mg PO BID #14 tablet 12/18/20 predniSONE [Prednisone*] 20 mg PO DAILY #5 tab 12/18/20 New Medications: Apixaban [Eliquis] 5 mg PO BID #14 tablet predniSONE [Prednisone*] 20 mg PO DAILY #5 tab Albuterol Inhaler [Ventolin Inhaler*] 2 puff IH Q6H PRN #1 hfa.aer.ad PRN Reason: Shortness Of Breath Physician Discharge Instructions: OK TO DC IV AND DC HOME FOLLOW-UP WITH PRIMARY CARE PROVIDER IN 1-2 WEEKS RETURN TO THE ER IF symptoms worsen CALL or TEXT DR. RIVERA AT [phone] IF ANY QUESTIONS REGARDING HOSPITAL STAY. PLEASE CALL THE FLOOR AT [phone] IF ANY MEDICATION OR NURSING QUESTIONS. Diet: Regular Activity: Fall precautions Followup: Unknown,U [Primary Care Provider] - Time spent managing pt's care (in minutes): 35
== END 2020-12-18 19:07 | disposition home or self-care (01) | DRG 177 ==
LOC: ER 05:28 → ERHOLD 08:48 → 4TH 16:39
PROVIDERS: ADMIT Hospitalist; ATTEND Hospitalist
DX: U07.1 COVID-19 (principal); J12.82 Pneumonia due to coronavirus disease 2019; I10 Essential (primary) hypertension; E78.5 Hyperlipidemia, unspecified; Z88.8 Allergy status to other drugs, medicaments and biological substances; Z79.01 Long term (current) use of anticoagulants; Z79.52 Long term (current) use of systemic steroids; Z79.899 Other long term (current) drug therapy
CPT/HCPCS: 36415; 71045; 71275; 80048; 80053; 80061; 80076; 81003; 82565; 82728; 83605; 83735; 83880; 84100; 84484; 85025; 85610; 86140; 87040; 87086; 87088; 93005; 94760; 96365; 96368; 96372; 96375; 99285; J0456; J0696; J1100; J1650; J2405; J2920; J2930; J7050; Q9967